=== PATIENT | male | born 1990 | race Two or more races ===

== ENCOUNTER 2018-05-06 19:45 | Emergency (ER) | payer BC, OTHER ==
[2018-05-06 20:46] VITALS: BP 135/84; PULSE 69; TEMP 98.2
[2018-05-06 21:49] VITALS: RESP 18
--- NOTE | 2018-05-06 22:06 | ED ---
General Adult HPI - General Chief complaint: Recheck/Abnormal Lab/Rx Stated complaint: Coughing up blood Time Seen by Provider: 05/06/18 21:32 Source: patient Mode of arrival: ambulatory Limitations: no limitations - History of Present Illness Initial comments: 27-year-old male patient presents the emergency department today for evaluation of hemoptysis. Patient states that he started testosterone injections and Wellbutrin 2 weeks ago. Patient states for the last week he has been coughing up blood. Patient states he will initially cough up a large glob of blood and then it will get less and less until stops coming out. Patient denies any chest pain or significant shortness of breath with this. Patient states he does smoke cigarettes and does occasionally cough from this. He denies any fever, chills, nasal congestion, or sore throat. States that he is also experiencing left testicular discomfort and swelling. Patient states this has been going on for several days, states it is a dull ache. Patient denies any hematuria, dysuria, urinary frequency, urinary urgency. He denies any drainage from the penis. Patient denies any recent rash, abdominal pain, nausea, vomiting , diarrhea, constipation, back pain, numbness, tingling, dizziness, weakness, headache, visual changes, or any other complaints. - Related Data Home Medications Medication Instructions Recorded Confirmed Testosterone Cypionate 200 mg IM MO 05/06/18 05/06/18 [Depo-Testosterone] buPROPion [Wellbutrin] 75 mg PO DAILY 05/06/18 05/06/18 Allergies Allergy/AdvReac Type Severity Reaction Status Date / Time amoxicillin Allergy Rash/Hives Verified 05/06/18 21:28 Review of Systems ROS Statement: Those systems with pertinent positive or pertinent negative responses have been documented in the HPI. ROS Other: All systems not noted in ROS Statement are negative. Past Medical History Past Medical History: Hypertension History of Any Multi-Drug Resistant Organisms: None Reported Past Surgical History: No Surgical Hx Reported Past Psychological History: Anxiety, Bipolar Smoking Status: Current every day smoker Past Alcohol Use History: None Reported Past Drug Use History: None Reported General Exam Limitations: no limitations General appearance: alert, in no apparent distress, other (Physical well- developed, well-nourished adult male patient in no acute distress. Vital signs upon presentation are temperature 98.2F, pulse 69, respirations 16, blood pressure 135/84, pulse ox 99% on room air.) Eye exam: Present: normal appearance, PERRL, EOMI. Absent: scleral icterus, conjunctival injection, periorbital swelling ENT exam: Present: normal exam, normal oropharynx, mucous membranes moist Respiratory exam: Present: normal lung sounds bilaterally. Absent: respiratory distress, wheezes, rales, rhonchi, stridor Cardiovascular Exam: Present: regular rate, normal rhythm, normal heart sounds. Absent: systolic murmur, diastolic murmur, rubs, gallop, clicks GI/Abdominal exam: Present: soft, normal bowel sounds. Absent: distended, tenderness, guarding, rebound, rigid exam: Present: testicular tenderness (Left) Neurological exam: Present: alert, oriented X3, CN II-XII intact Psychiatric exam: Present: normal affect, normal mood Skin exam: Present: warm, dry, intact, normal color. Absent: rash Course Vital Signs 05/06/18 05/06/18 20:43 21:48 Temperature 98.2 F Pulse Rate 69 Respiratory 16 18 Rate Blood Pressure 135/84 O2 Sat by Pulse 99 Oximetry Medical Decision Making - Medical Decision Making 19-year-old male patient presented to the emergency department today with chief complaint of hemoptysis. Physical examination is unremarkable, lungs are clear to auscultation with good air movement. Patient denies any significant pain or shortness of breath with this. Chest x-ray showed no acute cardiopulmonary process. Labs reviewed and are unremarkable including d-dimer which was negative. Patient was also complaining of left testicular pain and swelling. There is some left testicular tenderness. Patient refused ultrasound at this time stating that he didn't have time. Pain had been present over the last week , he described as a dull ache. We did send urine and STD testing. Regards to his bloody sputum he was likely is suffering from acute bronchitis related to both smoking and use of testosterone injections. Did discuss results and findings with the patient. He is instructed to stop smoking and to follow-up with his primary care physician for recheck in 1-2 days. Return parameters were discussed in detail. He verbalizes understanding and agrees with this plan. - Lab Data Result diagrams: 05/06/18 22:07 05/06/18 22:07 Lab Results 05/06/18 05/06/18 05/06/18 Range/Units 22:07 22:07 22:07 WBC 10.1 (3.8-10.6) k/uL RBC 5.39 (4.30-5.90) m/uL Hgb 15.0 (13.0-17.5) gm/dL Hct 45.6 (39.0-53.0) % MCV 84.5 (80.0-100.0) fL MCH 27.9 (25.0-35.0) pg MCHC 33.0 (31.0-37.0) g/dL RDW 13.1 (11.5-15.5) % Plt Count 211 (150-450) k/uL Neutrophils % 70 % Lymphocytes % 22 % Monocytes % 4 % Eosinophils % 2 % Basophils % 0 % Neutrophils # 7.1 (1.3-7.7) k/uL Lymphocytes # 2.2 (1.0-4.8) k/uL Monocytes # 0.4 (0-1.0) k/uL Eosinophils # 0.2 (0-0.7) k/uL Basophils # 0.0 (0-0.2) k/uL PT 9.6 (9.0-12.0) sec INR 1.0 (<1.2) APTT 25.9 (22.0-30.0) sec D-Dimer 0.22 (<0.60) mg/L FEU Sodium 139 (137-145) mmol/L Potassium 4.0 (3.5-5.1) mmol/L Chloride 104 (98-107) mmol/L Carbon Dioxide 24 (22-30) mmol/L Anion Gap 11 mmol/L BUN 11 (9-20) mg/dL Creatinine 0.97 (0.66-1.25) mg/dL Est GFR (CKD-EPI)AfAm >90 (>60 ml/min/1.73 sqM) Est GFR (CKD-EPI)NonAf >90 (>60 ml/min/1.73 sqM) Glucose 92 (74-99) mg/dL Calcium 9.9 (8.4-10.2) mg/dL Total Bilirubin 0.7 (0.2-1.3) mg/dL AST 27 (17-59) U/L ALT 43 (21-72) U/L Alkaline Phosphatase 47 (38-126) U/L Total Protein 7.4 (6.3-8.2) g/dL Albumin 4.6 (3.5-5.0) g/dL - Radiology Data Radiology results: report reviewed, image reviewed Two-view x-ray of the chest is obtained. Heart mediastinum are normal. Lungs are clear. Diaphragm is normal. Bony thorax appears normal. Pulmonary vascularity is normal. Impression by Dr. Nation shows normal chest. Disposition Clinical Impression: Acute bronchitis, Testicular pain Disposition: HOME SELF-CARE Condition: Good Instructions: Acute Bronchitis (ED), Testicle Pain (ED) Additional Instructions: Stop smoking. Follow-up with your primary care physician for recheck in 1-2 days. Return here immediately for any new, worsening, or concerning symptoms. Is patient prescribed a controlled substance at d/c from ED?: No Referrals: None,Stated [Primary Care Provider] - 1-2 days Time of Disposition: 22:37
[2018-05-06 22:15] LABS: Basophils % (A) 0 %; Eosinophils # (A) 0.2 k/uL (0-0.7); Eosinophils % (A) 2 %; HCT 45.6 % (39.0-53.0); Lymphocytes # (A) 2.2 k/uL (1.0-4.8); Lymphocytes % (A) 22 %; MCH 27.9 pg (25.0-35.0); MCV 84.5 fL (80.0-100.0); Mean Platelet Volume 7.1; Monocytes # (A) 0.4 k/uL (0-1.0); Monocytes % (A) 4 %; Neutrophils # (A) 7.1 k/uL (1.3-7.7); Neutrophils % (A) 70 %; Platelet Count 211 k/uL (150-450); RBC 5.39 m/uL (4.30-5.90); RDW 13.1 % (11.5-15.5); WBC 10.1 k/uL (3.8-10.6)
[2018-05-06 22:24] LABS: ALT 43 U/L (21-72); AST 27 U/L (17-59); Albumin 4.6 g/dL (3.5-5.0); Alkaline Phosphatase 47 U/L (38-126); Anion Gap 11 mmol/L; Blood Urea Nitrogen 11 mg/dL (9-20); Calcium 9.9 mg/dL (8.4-10.2); Carbon Dioxide 24 mmol/L (22-30); Chloride 104 mmol/L (98-107); Glucose 92 mg/dL (74-99); Sodium 139 mmol/L (137-145); Total Bilirubin 0.7 mg/dL (0.2-1.3); Total Protein 7.4 g/dL (6.3-8.2)
--- NOTE | 2018-05-06 22:26 | XR ---
EXAMINATION TYPE: XR chest 2V DATE OF EXAM: 05/06/2018 COMPARISON: NONE HISTORY: Hemoptysis TECHNIQUE: Frontal and lateral views of the chest are obtained. FINDINGS: Heart and mediastinum are normal. Lungs are clear. Diaphragm is normal. Bony thorax appear s normal. Pulmonary vascularity is normal. IMPRESSION: Normal chest
[2018-05-06 22:28] LABS: D-Dimer 0.22 mg/L FEU (<0.60); Partial Thromboplastin Time 25.9 sec (22.0-30.0); Prothrombin Time 9.6 sec (9.0-12.0)
[2018-05-06 22:42] LABS: Appearance,Urine Clear (Clear); Bacteria,Urine Rare /hpf; Bilirubin,Urine Negative (Negative); Blood,Urine Negative (Negative); Color,Urine Yellow; Glucose,Urine (UA) Negative (Negative); Ketones,Urine 1+ (Negative); Leukocyte Esterase,Urine Moderate (Negative); Mucus,Urine Occasional /hpf; Nitrite,Urine Negative (Negative); Protein,Urine Trace (Negative); RBC,Urine 2 /hpf (0-5); Specific Gravity,Urine 1.019 (1.001-1.035); Squamous Epithelial Cell,Urine <1 /hpf (0-4); Urobilinogen,Urine <2.0 mg/dL (<2.0); WBC,Urine 25 /hpf (0-5)
[2018-05-07 16:15] LABS: C. trachomatis,PCR Positive (Neg,Equiv); Chlamydia trachomatis Source Urine; N. gonorrhoeae,PCR Negative (Neg,Equiv); Neisseria Source Urine
== END 2018-05-06 22:55 | disposition home or self-care (01) ==
LOC: EC 19:45
DX: J20.9 Acute bronchitis, unspecified (principal); N50.812 Left testicular pain; N50.89 Other specified disorders of the male genital organs; F32.9 Major depressive disorder, single episode, unspecified; F17.210 Nicotine dependence, cigarettes, uncomplicated; Z79.899 Other long term (current) drug therapy; Z88.0 Allergy status to penicillin
CPT/HCPCS: 36415; 71046; 80053; 81001; 85025; 85379; 85610; 85730; 87491; 87591; 99283